=== PATIENT | female | born 1985 | race Caucasian/White ===

== ENCOUNTER 2022-09-19 19:03 | Emergency (ER) | payer BC ==
[2022-09-19] MEDS ORDERED: HYDROmorphone 1 MG/ML Syringe IVPUSH ONE (19:47)
[2022-09-19] MEDS ORDERED: Sodium Chloride 0.9% 1,000 ML IV SCH (20:00)
[2022-09-19] MEDS ORDERED: Ondansetron 4 MG/2 ML SDV IVPUSH ONE (20:07)
[2022-09-19] MEDS ORDERED: Haloperidol Lactate 5 MG/ML SDV IM ONE (21:20)
[2022-09-19] MEDS ORDERED: Benztropine 1 MG Tab PO ONE (21:20)
[2022-09-19] MEDS ORDERED: Haloperidol Lactate 5 MG/ML SDV ONE (21:49)
== END 2022-09-19 23:15 | disposition home or self-care (01) ==
LOC: JD.ED 19:03
DX: G43.009 Migraine without aura, not intractable, without status migrainosus (principal); Z91.013 Allergy to seafood; Z86.16 Personal history of COVID-19
CPT/HCPCS: 70450; 96361; 96372; 96374; 96375; 99283; J1170; J1630; J2405; J7030

== ENCOUNTER 2024-02-10 18:14 | Emergency (ER) | payer BC ==
[2024-02-10] MEDS: Ketorolac 30 MG/ML SDV IM ONE (19:49)
[2024-02-10] MEDS: Diazepam 2 MG Tab PO ONE (19:50)
== END 2024-02-10 20:40 | disposition home or self-care (01) ==
LOC: JD.ED 18:14
DX: M62.838 Other muscle spasm (principal); Z86.16 Personal history of COVID-19; Z79.899 Other long term (current) drug therapy; Z91.013 Allergy to seafood
CPT/HCPCS: 96372; 99283; A9270; J1885; 99282